=== PATIENT | female | born 2000 | race Caucasian/White ===

== ENCOUNTER 2023-10-02 10:45 | Outpatient (CLI) | payer OTHER ==
[2023-10-02 19:23] LABS: INFLUENZA A H3- RESP PCR PANEL DETECTED; INFLUENZA A- RESP PCR PANEL NOT DETECTED; INFLUENZA B - RESP PCR PANEL NOT DETECTED; RSV- RESP PCR PANEL NOT DETECTED; SARS-CoV-2 -RESP PCR PANEL NOT DETECTED
== END 2023-10-02 11:00 | disposition home or self-care (01) ==
LOC: LAB.N 10:45
PROVIDERS: ATTEND Family Medicine
DX: J06.9 Acute upper respiratory infection, unspecified (principal)
CPT/HCPCS: 87637